=== PATIENT | male | born 1945 | race Caucasian/White ===

== ENCOUNTER 2017-05-03 16:55 | Observation (INO) | payer OTHER, BC ==
[~2017-05-03] VITALS: Ht 182.9 cm; Wt 91.0 kg
[2017-05-03] MEDS ORDERED: MoRPHine SULFATE 4 MG/ML 1 ML CARP\\VIAL IV STA (17:14)
[2017-05-03] MEDS ORDERED: SODIUM CHLORIDE 0.9% 1000ML 1,000 ML IV STA (17:16)
[2017-05-03 17:24] LABS: BASO % 0.1 %; BASO ABS # 0.01 K/uL (0-0.2); COMPLETE YES; EOS % 0.4 %; HEMATOCRIT 48.8 % (42-52); IG% 0.1 %; LYMPH % 4.1 %; LYMPH ABS # 0.37 K/uL (1.2-3.4); MEAN CELL VOLUME 90.5 fL (80-100); MEAN CORPUSCULAR HEMOGLOBIN 29.9 pg (25-34); MEAN PLATELET VOLUME 9.5 fL (7.4-10.4); MONO % 10.4 %; NEUT % 84.9 %; PLATELET COUNT 184 K/uL (130-400); RED BLOOD COUNT 5.39 M/uL (4.7-6.1); WHITE BLOOD COUNT 8.96 K/uL (4.8-10.8)
[2017-05-03 17:29] LABS: PROTHROMBIN TIME (PATIENT) 10.6 SECONDS (9.0-12.0)
[2017-05-03 17:32] LABS: ISTAT HEMOGLOBIN 16.7 g/dl (14.0-18.0); ISTAT IONIZED CALCIUM 1.16 mmol/l (1.12-1.32)
[2017-05-03 17:36] LABS: BUN/CREATININE RATIO 20.7 (10-20); CREATININE 1.1 mg/dl (0.60-1.40); POTASSIUM 3.9 mmol/L (3.5-5.1)
[2017-05-03] MEDS ORDERED: RANI150T3 PO (17:46)
[2017-05-03] MEDS ORDERED: MULT-513 PO (17:46)
[2017-05-03] MEDS ORDERED: ASTN (17:46)
[2017-05-03] MEDS ORDERED: ATOR10TA88 PO (17:46)
[2017-05-03] MEDS ORDERED: PANT40TA PO (17:46)
[2017-05-03] MEDS ORDERED: OPTIRAY 320 IV PRN (18:15)
--- NOTE | 2017-05-03 18:21 | EMERGENCY ROOM VISIT NOTE ---
History Report prepared by Gaudencio: Geronimo Page Under the Supervision of: Dr. Bette Nicholas D.O. First contact with patient: 17:00 Chief Complaint: SHORTNESS OF BREATH Stated Complaint: SOB, PAIN IN CHEST WHEN BREATHING History of Present Illness The patient is a 71 year old male who presents to the Emergency Room with complaints of worsening shortness of breath and pain with inspiration which is better when sitting up and standing. Per the patient's , this morning the patient was having pain in his left shoulder blade and sternal pain which has worsened. The patient's states that the patient has had a similar episode a few years ago, and it turned out to be pericarditis. Additionally, the patient has a history of sarcoidosis in his heart and lung. The patient recently had a CT scan done, and in the right lung there has been a change, so he is going to be getting a biopsy sometime soon. He additionally notes that he has been power washing a lot recently. Pt denies headache, change in vision, fevers, cough, sore throat, runny nose, nausea, vomiting, diarrhea, pain with urination, and melena. He states that he is not on chronic steroids. He denies any history of asthma, COPD, smoking, and heart issues other than sarcoidosis. He states that he has a history of reflux, though this pain is very different. power washing recently Source of History: patient, spouse/significant other Onset: this morning Position: other (global) Quality: other (shortness of breath) Timing: worsening Modifying Factors (Relieving): other (Sitting up and standing) Associated Symptoms: + chest pain Review of Systems See HPI for pertinent positives & negatives. A total of 10 systems reviewed and were otherwise negative. Past Medical & Surgical Medical Problems: (1) Abnormal chest CT (2) Cholelithiasis (3) Dyslipidemia (4) GERD (gastroesophageal reflux disease) (5) History of pericarditis (6) Pericarditis (7) Sarcoidosis Surgical Problems: (1) Status post cardiac catheterization (2) Status post implantation of automatic cardioverter/defibrillator (AICD) (3) Status post total knee replacement Social History Smoking Status: Never Smoker Marital Status: Housing Status: lives with family Current/Historical Medications Scheduled Atorvastatin (Lipitor), 10 MG PO DAILY Azelastine Hcl (Astelin Nasal [place]), 1 SPRAYS NA BID Colchicine (Colcrys), 0.6 MG PO BID Lactobacillus Acidophilus (Lactinex), 2 TAB PO BID Levofloxacin (Levofloxacin), 500 MG PO DAILY@11 Multivitamins/Minerals (Mvi With Minerals), 2 TAB PO DAILY Pantoprazole (Protonix), 40 MG PO DAILY Prednisone (Prednisone), 20 MG PO DAILY Ranitidine Hcl (Zantac), 150 MG PO HS Allergies Coded Allergies: No Known Allergies (Unverified , 05/03/17) Physical Exam Vital Signs Date Time Temp Pulse Resp B/P (MAP) Pulse Ox O2 Delivery O2 Flow Rate FiO2 05/03/17 18:55 93 20 154/94 99 Room Air 05/03/17 17:31 88 05/03/17 17:14 98 Nasal Cannula 2.0 05/03/17 17:14 97 Nasal Cannula 05/03/17 17:13 97 Room Air 05/03/17 16:57 36.7 93 28 148/98 97 Room Air Physical Exam GENERAL: alert, well appearing, well nourished, moderate distress distress, non- toxic, uncomfortable in obvious pain EYE EXAM: normal conjunctiva, PERRL and EOM's grossly intact OROPHARYNX: no exudate, no erythema, lips, buccal mucosa, and tongue normal and mucous membranes are moist NECK: supple, no nuchal rigidity, no adenopathy, non-tender LUNGS: Clear to auscultation. Normal chest wall mechanics HEART: no murmurs, S1 normal and S2 normal CHEST: Pace maker in the left anterior superior chest wall. ABDOMEN: abdomen soft, non-tender, normo-active bowel sounds, no masses, no rebound or guarding. BACK: Back is symmetrical on inspection and there is no deformity, no midline tenderness, no CVA tenderness. SKIN: no rashes and no bruising UPPER EXTREMITIES: upper extremities are grossly normal. LOWER EXTREMITIES: No pitting edema. NEURO EXAM: Normal sensorium, cranial nerves II-XII [grossly] intact, normal speech, no [gross] weakness of arms, no [gross] weakness of legs. [No drift. Finger to nose intact. Gross sensation intact.] Medical Decision & Procedures ER Provider Diagnostic Interpretation: Radiology results have been interpreted by the radiologist and reviewed by me. CHEST ONE VIEW PORTABLE HISTORY: Short of breath. Atypical chest pain. COMPARISON: None. FINDINGS: Low lung volumes. The heart is mildly enlarged. Left-sided pacemaker/defibrillator. No pneumothorax. No pleural effusions. Patchy airspace opacity within the right lung base. Mild central pulmonary vascular congestion without overt edema. IMPRESSION: 1. Right basilar airspace opacity. This may represent atelectasis or pneumonia. 2. Mild central pulmonary vascular congestion without overt edema. Electronically signed by: Froylan Dolan M.D. 05/03/2017 6:40 PM Dictated Date/Time: 05/03/2017 6:39 PM CHEST CTA for PULMONARY ARTERIES CT DOSE: 398.95 mGy.cm HISTORY: Atypical chest pain. Short of breath. TECHNIQUE: Multiaxial CT images of the chest were performed following the intravenous administration of contrast to evaluate the pulmonary arteries. Maximal intensity projection images were also obtained. A dose lowering technique was utilized adhering to the principles of ALARA. COMPARISON STUDY: Chest 05/03/2017. FINDINGS: No significant pleural effusions. Small pericardial effusion. Left-sided pacemaker. Normal caliber thoracic aorta with no evidence for dissection. No definite filling defects within the pulmonary arteries to suggest pulmonary embolus. No suspicious lytic or blastic osseous lesions. The visualized liver and spleen are unremarkable. Multiple calcified mediastinal and hilar lymph nodes. The bilateral hilar lymph nodes are mildly enlarged. Some of the bilateral hilar lymphadenopathy/soft tissue results in narrowing of the central pulmonary arteries. No pneumothorax. Small focal density within the left lung apex. Focal left suprahilar area of consolidation/soft tissue demonstrate a bronchovascular distribution. This measures 1.8 cm. A few additional scattered nodular and groundglass airspace opacity seen within the lungs. A 4 mm subpleural nodule within the right lower lobe on image 52. A 9 mm focal area of consolidation within the superior segment of the left lower lobe in image 116. Patchy airspace consolidation seen within the right middle lobe and base of the right lower lobe. Peripheral cavitary lesion within the right upper lobe measuring 1.4 cm. The bilateral hilar soft tissue/lymphadenopathy also results in narrowing of the central bronchi. Mild bibasilar interstitial thickening. Patchy groundglass airspace opacities within the base of the lingula and left lower lobe. IMPRESSION: 1. No evidence for pulmonary embolus. 2. Multifocal airspace opacities as described above most pronounced at the right lung base. This favors a pneumonia. There is also a 1.4 cm cavitary lesion within the right upper lobe. This may also represent an infectious process. However, recommend follow up to resolution to exclude the possibility of a malignancy. 3. Calcified mediastinal and hilar lymph nodes. The bilateral hilar lymph nodes/soft tissue encases the central pulmonary arteries and bronchi resulting mild narrowing. There is also a 1.8 cm soft tissue focus within the left suprahilar location surrounding the bronchovascular bundle. This could be due to sarcoidosis or possibly a neoplastic process. Pulmonary consultation is recommended for further evaluation. 4. Small pericardial effusion. Electronically signed by: Froylan Dolan M.D. 05/03/2017 7:08 PM Dictated Date/Time: 05/03/2017 6:56 PM Laboratory Results 05/03/17 17:05 Red Blood Count 5.39, Mean Corpuscular Volume 90.5, Mean Corpuscular Hemoglobin 29.9, Mean Corpuscular Hemoglobin Concent 33.0, Mean Platelet Volume 9.5, Neutrophils (%) (Auto) 84.9, Lymphocytes (%) (Auto) 4.1, Monocytes (%) (Auto) 10.4, Eosinophils (%) (Auto) 0.4, Basophils (%) (Auto) 0.1, Neutrophils # (Auto ) 7.60, Lymphocytes # (Auto) 0.37, Monocytes # (Auto) 0.93, Eosinophils # (Auto ) 0.04, Basophils # (Auto) 0.01 Test 05/03/17 17:05 05/03/17 17:20 White Blood Count 8.96 K/uL (4.8-10.8) Red Blood Count 5.39 M/uL (4.7-6.1) Hemoglobin 16.1 g/dL (14.0-18.0) Hematocrit 48.8 % (42-52) Mean Corpuscular Volume 90.5 fL (80-100) Mean Corpuscular Hemoglobin 29.9 pg (25-34) Mean Corpuscular Hemoglobin Concent 33.0 g/dl (32-36) Platelet Count 184 K/uL (130-400) Mean Platelet Volume 9.5 fL (7.4-10.4) Neutrophils (%) (Auto) 84.9 % Lymphocytes (%) (Auto) 4.1 % Monocytes (%) (Auto) 10.4 % Eosinophils (%) (Auto) 0.4 % Basophils (%) (Auto) 0.1 % Neutrophils # (Auto) 7.60 K/uL (1.4-6.5) Lymphocytes # (Auto) 0.37 K/uL (1.2-3.4) Monocytes # (Auto) 0.93 K/uL (0.11-0.59) Eosinophils # (Auto) 0.04 K/uL (0-0.5) Basophils # (Auto) 0.01 K/uL (0-0.2) RDW Standard Deviation 44.8 fL (36.4-46.3) RDW Coefficient of Variation 13.7 % (11.5-14.5) Immature Granulocyte % (Auto) 0.1 % Immature Granulocyte # (Auto) 0.01 K/uL (0.00-0.02) Prothrombin Time 10.6 SECONDS (9.0-12.0) Prothromb Time International Ratio 1.0 (0.9-1.1) D-Dimer 780 ug/L FEU (0-500) Total Bilirubin 0.7 mg/dl (0.2-1) Aspartate Amino Transf (AST/SGOT) 16 U/L (15-37) Alanine Aminotransferase (ALT/SGPT) 21 U/L (12-78) Alkaline Phosphatase 82 U/L (45-117) Pro-B-Type Natriuretic Peptide 103 pg/ml (0-900) Total Protein 8.0 gm/dl (6.4-8.2) Albumin 4.1 gm/dl (3.4-5.0) Globulin 3.9 gm/dl (2.5-4.0) Albumin/Globulin Ratio 1.0 (0.9-2) Bedside Hemoglobin 16.7 g/dl (14.0-18.0) Bedside Hematocrit 49 % (42-52) Bedside Sodium 139 mEq/L (135-144) Bedside Potassium 3.9 mEq/L (3.3-5.0) Bedside Chloride 101 mEq/L (101-112) Bedside Total CO2 27 mEq/l (24-31) Bedside Blood Urea Nitrogen 25 mg/dl (7-18) Bedside Creatinine 1.0 mg/dl (0.6-1.3) Bedside Glucose (other) 141 mg/dl (70-99) Bedside Ionized Calcium (Rupa) 1.16 mmol/l (1.12-1.32) Laboratory results per my review. Medications Administered Medications (Trade) Dose Ordered Sig/Eric Route Start Time Stop Time Status Last Admin Dose Admin Morphine Sulfate (MoRPHine SULFATE INJ) 4 mg NOW STAT IV 05/03/17 17:14 05/03/17 17:16 DC 05/03/17 17:21 4 MG Sodium Chloride 1,000 ml @ 125 mls/hr Q8H STAT IV 05/03/17 17:16 05/03/17 21:33 DC 05/03/17 17:21 125 MLS/HR Ceftriaxone Sodium (Rocephin Inj) 1 gm NOW STAT IV 05/03/17 19:13 05/03/17 19:14 DC 05/03/17 19:56 1 GM Azithromycin (Zithromax Tab) 500 mg NOW ONCE PO 05/03/17 19:15 05/03/17 19:16 DC 05/03/17 19:56 500 MG Acetaminophen (Tylenol Tab) 650 mg NOW STAT PO 05/03/17 19:13 05/03/17 19:14 DC 05/03/17 19:25 650 MG ECG Indication: chest pain, SOB/dyspnea Rate (beats per minute): 91 Rhythm: sinus rhythm Findings: RBBB, no acute ischemic change, other (Normal axis, normal QTc) ED Course 1700: The patient was evaluated in room C9. A complete history and physical exam was performed. 171: Morphine Sulfate 4mg IV 171: Sodium Chloride 1000 ml @ 125 mls/hr IV 172: Bedside US showed no obvious pericardial effusions or tamponade. Grossly normal appearing EF 1855: I reevaluated the patient, and I updated him on the findings. 1912: Tylenol Tab 650mg PO, Rocephin Inj 1gm IV 1914: Azithromycin Tab 500mg PO 1918: I reevaluated him on the treatment plan, and he was agreeable. 1933: I reviewed the patient's case with Cliff Serra. He will evaluate the patient for further management. Medical Decision Differential diagnosis: Etiologies such as cardiac ischemia, aortic dissection, pulmonary embolism, pneumonia, pneumothorax, musculoskeletal, infections, pericarditis, myocarditis , esophageal rupture, gastrointestinal, infections, reactive airway disease, pneumonia, pneumothorax, COPD, CHF, cardiac ischemia, pulmonary embolism, musculoskeletal, gastrointestinal, as well as others were entertained. Patient never overtly hypoxic, although had subjective symptoms shortness of breath improved with oxygen. Patient with significant amount of pain and distress initially, improved with morphine. Patient found to have a bilateral pneumonia. Patient not immunocompromised, is not a chronic steroids, had no recent prodromal symptoms to suggest an upper respiratory infection. No evidence of bacteremia/sepsis and patient afebrile here. Given patient's bilateral pneumonia, history of sarcoidosis, patient admitted for continued monitoring. IV antibiotics ordered down here to cover for community acquired pneumonia. Vital signs otherwise stable. Patient and family aware of all results were agreeable with plan. No other evidence of ACS, PE, vascular pathology. Medication Reconcilliation Current Medication List: was personally reviewed by me Blood Pressure Screening Patient's blood pressure: Elevated blood pressure Blood pressure disposition: Elevated BP felt to be situational Consults Time Called: 1914 Consulting Physician: Cliff Serra Returned Call: 1933 I reviewed the patient's case with Cliff Serra. He will evaluate the patient for further management. Impression Primary Impression: Chest pain Additional Impressions: SOB (shortness of breath) Bilateral pneumonia Sarcoidosis Scribe Attestation The scribe's documentation has been prepared under my direction and personally reviewed by me in its entirety. I confirm that the note above accurately reflects all work, treatment, procedures, and medical decision making performed by me. Departure Information Dispostion Being Evaluated By Hospitalist Prescriptions Lactobacillus Acidophilus (Lactinex) Tab 2 TAB PO BID, #30 TAB Prov: Jani Gramajo M.D. 05/04/17 Colchicine (Colcrys) 0.6 Mg Tab 0.6 MG PO BID for 30 Days, #60 TAB Prov: Jani Gramajo M.D. 05/04/17 Prednisone (Prednisone) 20 Mg Tab 20 MG PO DAILY for 20 Days, #20 TAB 2 tab PO daily for 5 days,1 and a 1/2 tab PO daily for 5 days,1 tab PO daily for 5 days and then 1/2 tab po dailt for 5 days Prov: Jani Gramajo M.D. 05/04/17 Levofloxacin (Levofloxacin) 500 Mg Tab 500 MG PO DAILY@11 for 5 Days, #5 TAB Prov: Jani Gramajo M.D. 05/04/17 Patient Instructions My [facility] Problem Qualifiers Primary Impression: Chest pain Chest pain type: pleurodynia Qualified Codes: R07.81 - Pleurodynia Additional Impressions: Bilateral pneumonia Pneumonia type: due to unspecified organism Lung location: unspecified part of lung Qualified Codes: J18.9 - Pneumonia, unspecified organism
--- NOTE | 2017-05-03 18:41 | DIAGNOSTIC IMAGING REPORT ---
CHEST ONE VIEW PORTABLE HISTORY: Short of breath. Atypical chest pain. COMPARISON: None. FINDINGS: Low lung volumes. The heart is mildly enlarged. Left-sided pacemaker/defibrillator. No pneumothorax. No pleural effusions. Patchy airspace opacity within the right lung base. Mild central pulmonary vascular congestion without overt edema. IMPRESSION: 1. Right basilar airspace opacity. This may represent atelectasis or pneumonia. 2. Mild central pulmonary vascular congestion without overt edema. Electronically signed by: Froylan Dolan M.D. 05/03/2017 6:40 PM Dictated Date/Time: 05/03/2017 6:39 PM
--- NOTE | 2017-05-03 19:10 | DIAGNOSTIC IMAGING REPORT ---
CHEST CTA for PULMONARY ARTERIES CT DOSE: 398.95 mGy.cm HISTORY: Atypical chest pain. Short of breath. TECHNIQUE: Multiaxial CT images of the chest were performed following the intravenous administration of contrast to evaluate the pulmonary arteries. Maximal intensity projection images were also obtained. A dose lowering technique was utilized adhering to the principles of ALARA. COMPARISON STUDY: Chest 05/03/2017. FINDINGS: No significant pleural effusions. Small pericardial effusion. Left-sided pacemaker. Normal caliber thoracic aorta with no evidence for dissection. No definite filling defects within the pulmonary arteries to suggest pulmonary embolus. No suspicious lytic or blastic osseous lesions. The visualized liver and spleen are unremarkable. Multiple calcified mediastinal and hilar lymph nodes. The bilateral hilar lymph nodes are mildly enlarged. Some of the bilateral hilar lymphadenopathy/soft tissue results in narrowing of the central pulmonary arteries. No pneumothorax. Small focal density within the left lung apex. Focal left suprahilar area of consolidation/soft tissue demonstrate a bronchovascular distribution. This measures 1.8 cm. A few additional scattered nodular and groundglass airspace opacity seen within the lungs. A 4 mm subpleural nodule within the right lower lobe on image 52. A 9 mm focal area of consolidation within the superior segment of the left lower lobe in image 116. Patchy airspace consolidation seen within the right middle lobe and base of the right lower lobe. Peripheral cavitary lesion within the right upper lobe measuring 1.4 cm. The bilateral hilar soft tissue/lymphadenopathy also results in narrowing of the central bronchi. Mild bibasilar interstitial thickening. Patchy groundglass airspace opacities within the base of the lingula and left lower lobe. IMPRESSION: 1. No evidence for pulmonary embolus. 2. Multifocal airspace opacities as described above most pronounced at the right lung base. This favors a pneumonia. There is also a 1.4 cm cavitary lesion within the right upper lobe. This may also represent an infectious process. However, recommend follow up to resolution to exclude the possibility of a malignancy. 3. Calcified mediastinal and hilar lymph nodes. The bilateral hilar lymph nodes/soft tissue encases the central pulmonary arteries and bronchi resulting mild narrowing. There is also a 1.8 cm soft tissue focus within the left suprahilar location surrounding the bronchovascular bundle. This could be due to sarcoidosis or possibly a neoplastic process. Pulmonary consultation is recommended for further evaluation. 4. Small pericardial effusion. Electronically signed by: Froylan Dolan M.D. 05/03/2017 7:08 PM Dictated Date/Time: 05/03/2017 6:56 PM
[2017-05-03] MEDS ORDERED: ACETAMINOPHEN 325 MG TAB PO STA (19:13)
[2017-05-03] MEDS ORDERED: CEFTRIAXONE SOD INJ 1 GM ADDVIAL IV STA (19:13)
[2017-05-03] MEDS ORDERED: AZITHROMYCIN 250 MG TAB PO ONE (19:15)
--- NOTE | 2017-05-03 19:38 | History and Physical ---
History & Physical Date & Time of Service: May 03, 2017 at 19:38 . Chief Complaint: chest pain, shortness of breath . Primary Care Physician: No Doctor, Assigned History of Present Illness Source: patient, hospital records 71-year-old male from [place], [place] visiting friends in surgical specialty center at [facility]. History of sarcoidosis, pericarditis, and other problems noted below. He had a cardiac catheterization performed a few years ago that reportedly demonstrated normal coronaries. However, the patient indicates that "his heart stopped" during the catheterization. He does not know the circumstances of the arrhythmia, but a pacemaker/AICD was implanted during that hospital stay. His sarcoidosis has been quiescent has not required steroid therapy for many years. 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 A right upper lobe lesion has been followed by serial CT scans and has gradually increased in size. Bronchoscopy scheduled for 05/06. This morning he noted left scapular pain when he awakened. Pain seems to improve after taking a shower and doing some stretching. Later this morning he developed anterior chest pain described as sharp and worse with inspiration. The pain did not radiate. It was associated with dyspnea. No diaphoresis, nausea, vomiting. No fever or cough. Tried taking approximately without benefit. Came to the ED for evaluation. Received IV morphine with improvement of the chest pain. . Past Medical/Surgical History Chronic and Resolved Medical Problems: (1) Abnormal chest CT Status: Chronic (2) Cholelithiasis Status: Chronic (3) Dyslipidemia Status: Chronic (4) GERD (gastroesophageal reflux disease) Status: Chronic (5) History of pericarditis Status: Chronic (6) Sarcoidosis Status: Chronic Surgical Problems: (1) Status post cardiac catheterization Status: Chronic (2) Status post implantation of automatic cardioverter/defibrillator (AICD) Status: Chronic (3) Status post total knee replacement Status: Chronic . Family History FATHER Parkinson's disease Kidney disease MOTHER Thyroid disease Social History Smoking Status: Never Smoker Alcohol Use: socially Marital Status: Allergies Coded Allergies: No Known Allergies (Unverified , 05/03/17) Home Medications Scheduled Atorvastatin (Lipitor), 10 MG PO DAILY Azelastine Hcl (Astelin Nasal [place]), 1 SPRAYS NA BID Multivitamins/Minerals (Mvi With Minerals), 2 TAB PO DAILY Pantoprazole (Protonix), 40 MG PO DAILY Ranitidine Hcl (Zantac), 150 MG PO HS Review of Systems Constitutional: No fever, No chills Eyes: No worsening of vision, No diplopia ENT: No nasal symptoms, No sore throat Respiratory: + problem reported (as per HPI) Cardiovascular: + problem reported (as per HPI) Abdomen: No pain, No nausea, No vomiting, No diarrhea, No GI bleeding Musculoskeletal: + joint pain, No muscle pain Genitourinary - Male: No hematuria, No dysuria Neurologic: + problem reported (no headaches) Endocrine: No excessive thirst, No excessive urination Hematologic / Lymphatic: No abnormal bleeding/bruising, No swollen lymph nodes Integumentary: No rash, No new/changing skin lesions Physical Exam Vital Signs Date Time Temp Pulse Resp B/P (MAP) Pulse Ox O2 Delivery O2 Flow Rate FiO2 05/03/17 18:55 93 20 154/94 99 Room Air 05/03/17 17:31 88 05/03/17 17:14 98 Nasal Cannula 2.0 05/03/17 17:14 97 Nasal Cannula 05/03/17 17:13 97 Room Air 05/03/17 16:57 36.7 93 28 148/98 97 Room Air General Appearance: WD/WN, no apparent distress Head: normocephalic, atraumatic Eyes: normal inspection, PERRL, EOMI, sclerae normal, + pertinent finding ( conjunctivae pink) ENT: normal ENT inspection, hearing grossly normal, pharynx normal Neck: supple, thyroid normal, no JVD, trachea midline Respiratory/Chest: no respiratory distress, no accessory muscle use, + pertinent finding (bibasilar rales, more prominent on right) Cardiovascular: regular rate, rhythm, no edema, no gallop, no JVD, no murmur, normal peripheral pulses Abdomen/GI: normal bowel sounds, non tender, soft, no organomegaly, no pulsatile mass Extremities/Musculoskelatal: normal inspection, no calf tenderness, normal capillary refill, no pedal edema 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 (pupils equal round reactive, extraocular movements intact, no dysarthria, no facial palsy), no motor/sensory deficits (motor strength upper and lower extremities intact), alert, normal mood /affect, normal reflexes, oriented x 3 Skin: normal color, warm/dry, no rash Lymphatic: no adenopathy (cervical/axillary) Diagnostics Laboratory Results Results Past 24 Hours Test 05/03/17 17:05 05/03/17 17:20 Range/Units White Blood Count 8.96 4.8-10.8 K/uL Red Blood Count 5.39 4.7-6.1 M/uL Hemoglobin 16.1 14.0-18.0 g/dL Hematocrit 48.8 42-52 % Mean Corpuscular Volume 90.5 80-100 fL Mean Corpuscular Hemoglobin 29.9 25-34 pg Mean Corpuscular Hemoglobin Concent 33.0 32-36 g/dl Platelet Count 184 130-400 K/uL Mean Platelet Volume 9.5 7.4-10.4 fL Neutrophils (%) (Auto) 84.9 % Lymphocytes (%) (Auto) 4.1 % Monocytes (%) (Auto) 10.4 % Eosinophils (%) (Auto) 0.4 % Basophils (%) (Auto) 0.1 % Neutrophils # (Auto) 7.60 1.4-6.5 K/uL Lymphocytes # (Auto) 0.37 1.2-3.4 K/uL Monocytes # (Auto) 0.93 0.11-0.59 K/uL Eosinophils # (Auto) 0.04 0-0.5 K/uL Basophils # (Auto) 0.01 0-0.2 K/uL RDW Standard Deviation 44.8 36.4-46.3 fL RDW Coefficient of Variation 13.7 11.5-14.5 % Immature Granulocyte % (Auto) 0.1 % Immature Granulocyte # (Auto) 0.01 0.00-0.02 K/uL Prothrombin Time 10.6 9.0-12.0 SECONDS Prothromb Time International Ratio 1.0 0.9-1.1 D-Dimer 780 0-500 ug/L FEU Sodium Level 139 136-145 mmol/L Potassium Level 3.9 3.5-5.1 mmol/L Chloride Level 104 98-107 mmol/L Carbon Dioxide Level 26 21-32 mmol/L Anion Gap 9.0 16.0 16-25 mmol/L Blood Urea Nitrogen 23 7-18 mg/dl Creatinine 1.10 0.60-1.40 mg/dl Est Creatinine Clear Calc Drug Dose 69.6 ml/min Estimated GFR () 79.0 Estimated GFR (Non- 68.1 BUN/Creatinine Ratio 20.7 10-20 Random Glucose 143 70-99 mg/dl Calcium Level 9.0 8.5-10.1 mg/dl Total Bilirubin 0.7 0.2-1 mg/dl Aspartate Amino Transf (AST/SGOT) 16 15-37 U/L Alanine Aminotransferase (ALT/SGPT) 21 12-78 U/L Alkaline Phosphatase 82 45-117 U/L Pro-B-Type Natriuretic Peptide 103 0-900 pg/ml Total Protein 8.0 6.4-8.2 gm/dl Albumin 4.1 3.4-5.0 gm/dl Globulin 3.9 2.5-4.0 gm/dl Albumin/Globulin Ratio 1.0 0.9-2 Bedside Hemoglobin 16.7 14.0-18.0 g/dl Bedside Hematocrit 49 42-52 % Bedside Sodium 139 135-144 mEq/L Bedside Potassium 3.9 3.3-5.0 mEq/L Bedside Chloride 101 101-112 mEq/L Bedside Total CO2 27 24-31 mEq/l Bedside Blood Urea Nitrogen 25 7-18 mg/dl Bedside Creatinine 1.0 0.6-1.3 mg/dl Bedside Glucose (other) 141 70-99 mg/dl Bedside Ionized Calcium (Rupa) 1.16 1.12-1.32 mmol/l Microbiology Results 05/03/17 Blood Culture, Ordered Pending 05/03/17 Blood Culture, Ordered Pending Diagnostic Radiology CHEST ONE VIEW PORTABLE FINDINGS: Low lung volumes. The heart is mildly enlarged. Left-sided pacemaker/defibrillator. No pneumothorax. No pleural effusions. Patchy airspace opacity within the right lung base. Mild central pulmonary vascular congestion without overt edema. IMPRESSION: 1. Right basilar airspace opacity. This may represent atelectasis or pneumonia. 2. Mild central pulmonary vascular congestion without overt edema. Electronically signed by: Froylan Dolan M.D. 05/03/2017 6:40 PM Dictated Date/Time: 05/03/2017 6:39 PM CHEST CTA for PULMONARY ARTERIES FINDINGS: No significant pleural effusions. Small pericardial effusion. Left-sided pacemaker. Normal caliber thoracic aorta with no evidence for dissection. No definite filling defects within the pulmonary arteries to suggest pulmonary embolus. No suspicious lytic or blastic osseous lesions. The visualized liver and spleen are unremarkable. Multiple calcified mediastinal and hilar lymph nodes. The bilateral hilar lymph nodes are mildly enlarged. Some of the bilateral hilar lymphadenopathy/soft tissue results in narrowing of the central pulmonary arteries. No pneumothorax. Small focal density within the left lung apex. Focal left suprahilar area of consolidation/soft tissue demonstrate a bronchovascular distribution. This measures 1.8 cm. A few additional scattered nodular and groundglass airspace opacity seen within the lungs. A 4 mm subpleural nodule within the right lower lobe on image 52. A 9 mm focal area of consolidation within the superior segment of the left lower lobe in image 116. Patchy airspace consolidation seen within the right middle lobe and base of the right lower lobe. Peripheral cavitary lesion within the right upper lobe measuring 1.4 cm. The bilateral hilar soft tissue/lymphadenopathy also results in narrowing of the central bronchi. Mild bibasilar interstitial thickening. Patchy groundglass airspace opacities within the base of the lingula and left lower lobe. IMPRESSION: 1. No evidence for pulmonary embolus. 2. Multifocal airspace opacities as described above most pronounced at the right lung base. This favors a pneumonia. There is also a 1.4 cm cavitary lesion within the right upper lobe. This may also represent an infectious process. However, recommend follow up to resolution to exclude the possibility of a malignancy. 3. Calcified mediastinal and hilar lymph nodes. The bilateral hilar lymph nodes/soft tissue encases the central pulmonary arteries and bronchi resulting mild narrowing. There is also a 1.8 cm soft tissue focus within the left suprahilar location surrounding the bronchovascular bundle. This could be due to sarcoidosis or possibly a neoplastic process. Pulmonary consultation is recommended for further evaluation. 4. Small pericardial effusion. Electronically signed by: Froylan Dolan M.D. 05/03/2017 7:08 PM Dictated Date/Time: 05/03/2017 6:56 PM . EKG EKG performed at 17:04 reviewed and demonstrated normal sinus rhythm at 90/ minute, right bundle branch block, repolarization abnormalities. . Impression Assessment and Plan CHEST PAIN Patient presented to ED with anterior pleuritic chest pain. History of pericarditis, possibly secondary to sarcoidosis. Pulmonary embolism ruled out by CTA chest. Parenchymal radiographic abnormalities noted on imaging may be due to acute process as discussed below, but suspect that they represent chronic findings. Symptoms not suggestive of myocardial ischemia / infarction. Patient indicates that cardiac cath a few years ago showed normal coronaries. CT chest suggests small pericardial effusion. Suspect recurrent pericarditis. Check ESR and c-reactive protein. Check serial cardiac markers. Check echo. Start steroids- methylprednisolone IV x 1, then prednisone 40 mg daily. Consult Cardiology. PULMONARY INFILTRATES / SARCOIDOSIS Chest x-ray demonstrated right basilar infiltrate. CT chest demonstrated bilateral densities most prominent at right base, 1.4 cm cavitary lesion RUL, calcified mediastinal and hilar lymph nodes. Patient known to have sarcoidosis and has been followed by Pulmonary Medicine with serial CT scans. [facility] [place] [place] obtained. Bilateral scarring / interstitial thickening as well as a slowly enlarging RUL cavitary nodule measuring 15 mm described. Arrangements made for bronchoscopy 05/06/17. We don't have images available for direct comparison. Suspect that radiographic findings are chronic. Nevertheless, pneumonia is possible. Blood cultures were obtained in ED and patient received IV ceftriaxone and azithromycin. Check procalcitonin. Will change antibiotic coverage to levofloxacin. QTc = 460 msec (with RBBB). Follow. Patient will need copies of his imaging studies at time of discharge for review by his wood and hardware outfitter in [place]. S/P DEFIBRILLATOR / ICD Unclear exact indication- ? heart block or ventricular arrhythmia. No discharges of ICD. ELEVATED D-DIMER CTA chest negative for pulmonary embolism. Check venous duplex lower extremities. GERD Continue PPI. VTE PROPHYLAXIS No anticoagulants because of suspected pericarditis. SCD's. Ambulate. RESUSCITATION STATUS Discussed with patient. He has a living will. He would like resuscitation attempted in the event of a cardiopulmonary arrest if there is a reasonable chance of a meaningful recovery, but does not want prolonged extraordinary measures if prognosis is poor. Therefore, code status = "Level 1" (full resuscitation). DISPOSITION Admit to Telemetry Unit. Expected discharge to home. Medical and pulmonary follow-up with providers in [place], [place]. . VTE Prophylaxis VTE Risk Assessment Done? Y/N: Yes Risk Level: Moderate Given or contraindicated: SCD's
[2017-05-03] MEDS ORDERED: ACETAMINOPHEN 325 MG TAB PO PRN (19:45)
[2017-05-03] MEDS ORDERED: IV FLUIDS COMPLETED PRN (20:15)
[2017-05-03 20:45] VITALS: BP 112/81; PULSE 81; TEMP 36.5; O2SAT 98; Ht 182.9 cm; Wt 91.0 kg
[2017-05-03] MEDS ORDERED: RANITIDINE HCL 150 MG TAB PO ONE (21:26)
[2017-05-03] MEDS ORDERED: MoRPHine SULFATE 4 MG/ML 1 ML CARP\\VIAL IV PRN (21:30)
[2017-05-03] MEDS ORDERED: IBUPROFEN 600 MG TAB PO PRN (21:30)
[2017-05-03] MEDS ORDERED: METHYLPREDNISOLONE IV 40 MG in SYRINGE 0 ML IV ONE (22:00)
[2017-05-03] MEDS ORDERED: INFLUENZA ADMINISTRATION CHARGE ONE (23:15)
[2017-05-03] MEDS ORDERED: INFLUENZA VACCINE HIGH DOSE 65+ 0.5 ML SYR IM. ONE (23:15)
[2017-05-03 23:24] LABS: C-REACTIVE PROTEIN 3.37 mg/dl (0-0.29)
[2017-05-03 23:38] VITALS: BP 127/76; PULSE 73; TEMP 36.7; O2SAT 96
[2017-05-04 03:57] VITALS: BP 117/66; PULSE 69; TEMP 36; O2SAT 96
--- NOTE | 2017-05-04 06:18 | DIAGNOSTIC IMAGING REPORT ---
VENOUS DOPPLER LW EXT BILAT HISTORY: Pain. Edema. elevated D-dimer COMPARISON STUDY: None. FINDINGS: There is normal compressibility, flow, and augmentation within the bilateral lower extremity deep venous systems. IMPRESSION: No DVT within the right or left lower extremity. The above report was generated using voice recognition software. It may contain grammatical, syntax or spelling errors. Electronically signed by: Eben Rasheed M.D. 05/04/2017 6:17 AM Dictated Date/Time: 05/04/2017 6:16 AM
[2017-05-04 06:52] LABS: BLOOD UREA NITROGEN 19 mg/dl (7-18); BUN/CREATININE RATIO 19.3 (10-20); CALCIUM 8.9 mg/dl (8.5-10.1); CARBON DIOXIDE 25 mmol/L (21-32); CHLORIDE 106 mmol/L (98-107); CHOLESTEROL 144 mg/dl (0-200); CREATININE 0.98 mg/dl (0.60-1.40); GLUCOSE 167 mg/dl (70-99); POTASSIUM 4.4 mmol/L (3.5-5.1); SODIUM 140 mmol/L (136-145)
[2017-05-04 06:57] LABS: CHOLESTEROL/HDL RATIO 1.8; HDL CHOLESTEROL 81 mg/dl; LDL CHOLESTEROL CALCULATED 56 mg/dl; TRIGLYCERIDES 34 mg/dl (0-150); VERY LOW DENSITY LIPOPROT CALC 7 mg/dl
[2017-05-04 07:34] VITALS: BP 140/84; PULSE 79; TEMP 36.5; O2SAT 95
[2017-05-04 08:00] VITALS: O2SAT 95
[2017-05-04] MEDS ORDERED: PERFLUTREN LIPID MICROSPHERE (DEFINITY) IV ONE (08:52)
[2017-05-04] MEDS ORDERED: CEROVITE ADV FORMULA TAB PO SCH (09:00)
[2017-05-04] MEDS ORDERED: ATORVASTATIN 10 MG TAB PO SCH (09:00)
[2017-05-04] MEDS ORDERED: PANTOprazole SOD 40 MG TAB PO SCH (09:00)
[2017-05-04] MEDS ORDERED: LEVOFLOXACIN 500 MG TAB PO SCH (11:00)
[2017-05-04] MEDS ORDERED: COLCHICINE 0.6 MG TAB PO ONE (11:00)
[2017-05-04 11:05] VITALS: BP 137/72; PULSE 85; TEMP 36.5; O2SAT 91
--- NOTE | 2017-05-04 11:34 | CARDIOLOGY CONSULTATION ---
DATE OF CONSULTATION: 05/04/2017 REFERRING PHYSICIAN: Dr. Shilo Cantor. REASON FOR CONSULTATION: Chest discomfort, possible pericarditis and sarcoidosis. HISTORY OF PRESENT ILLNESS: Mr. Quintero is a 71-year-old gentleman who carries a history of cardiac sarcoidosis, first diagnosed approximately 8 years ago. The patient has a defibrillator implanted due to MRI proven cardiac sarcoid approximately 2.5-3 years ago. He also carries a history of previous pericarditis more than 5 years ago. The patient is visiting friends in the [facility]. He developed chest discomfort yesterday, described as sharp. The discomfort became progressively worse with inspiration over approximately 12-18 hours. The patient was taking shallow breath to avoid discomfort. He came to the emergency department for further evaluation. He was treated with intravenous Solu-Medrol. His symptoms have resolved and he is feeling back to baseline. A CT was performed of his chest. There was no evidence of pulmonary embolus; however, a small pericardial effusion was reported. There are some airspace opacities, possibly pneumonia noted as well. There were no old studies for comparison. Currently, the patient is resting comfortably. He denies chest pain or shortness of breath. No orthopnea, PND, lower extremity edema, claudication, palpitation, lightheadedness, dizziness, syncope or near syncope. Denies any exertional chest discomfort recently. His functional capacity has been stable. No ICD shocks. He offers no other complaints at this time. REVIEW OF SYSTEMS: The pertinent positives noted above. A comprehensive 10-system review is otherwise negative. PAST MEDICAL HISTORY: 1. Sarcoidosis with pulmonary and confirmed cardiac involvement status post ICD. 2. History of pericarditis. 3. Cholelithiasis. 4. Dyslipidemia. 5. GERD. PAST SURGICAL HISTORY: 1. Cardiac catheterization with reportedly normal coronary arteries. 2. ICD implantation. 3. Knee replacement. 4. Bronchoscopy. FAMILY HISTORY: Parkinson's and kidney disease. Denies family history of premature CAD or sudden cardiac . SOCIAL HISTORY: He is a lifelong nonsmoker. He is marries and lives with his . ALLERGIES: No known drug allergies. HOME MEDICATIONS: 1. Lipitor 10 mg daily. 2. Astelin nasal spray twice daily. 3. Multivitamin daily. 4. Protonix 40 mg daily. 5. Ranitidine 150 mg at bedtime. PHYSICAL EXAMINATION: VITAL SIGNS: Temperature 36.7 degrees centigrade, pulse 84 beats per minute, blood pressure 140/84 and SaO2 is 95% on 2 liter nasal cannula. GENERAL: NAD, awake, alert, and oriented x3. Healthy appearing, pleasant and cooperative. HEENT: His mucous membranes are moist. No scleral icterus. Conjunctivae are pink. NECK: Supple. There is no JVD, no HJR, and no carotid bruits. HEART: Regular with a normal S1 and S2. There is a 1-2/6 midsystolic murmur heard beast at the apex. LUNGS: Demonstrate clear breath sounds without rales, rhonchi, or wheezes. ABDOMEN: Soft and nontender. No rebound or guarding. Normal bowel sounds. EXTREMITIES: Warm and dry without clubbing, cyanosis, or edema. NEUROLOGIC: Demonstrates no focal deficits. FINAL IMPRESSION: 1. Acute pericarditis, possibly related to underlying sarcoidosis. 2. Possible exacerbation of pulmonary sarcoid with questionable pneumonia per CT. 3. History of ICD implantation due to sarcoidosis. 4. Questionable history of heart block. 5. History of normal coronary arteries per catheterization approximately 2.5-3 years ago. PLAN AND RECOMMENDATIONS: I had a long discussion with the patient regarding his pericarditis and sarcoidosis. Corticosteroids have been initiated by internal medicine. I am in agreement with this plan of care with a 3-4 week gradual taper. I am going to add colchicine 0.6 mg twice daily to help prevent recurrent episodes. Resting 2D transthoracic echo will be reviewed when available. Antibiotics will be managed by internal medicine. The patient is currently scheduled for needle biopsy of his sarcoid later this week in [place]. Further recommendations pending review of echo. The patient would like to be discharged if possible for close followup with his physicians in [place]. Thank you for allowing me to take part in the care of this patient. ANURAG
--- NOTE | 2017-05-04 12:35 | ECHOCARDIOGRAM REPORT ---
*NOTICE TO RECEIVING CONSTITUTION PARTY AGENCY This information is strictly Confidential and protected under [place] law. [place] law prohibits you from making any further disclosure of this information unless further disclosure is expressly permitted by the written consent of the person to whom it pertains or is authorized by law. A general authorization for the release of medical or other information is not sufficient for this purpose. Hospital accepts no responsibility if the information is made available to any other person, INCLUDING THE PATIENT. Interpretation Summary * Name: OCTAVIO MADERA Study Date: 05/04/2017 08:21 AM BP: 140/84 mmHg * Patient Location: C.2E\S\E202\S\1 HR: 79 * : 1945 (M/d/yyyy) Gender: Male Height: 72 in * Age: 71 yrs Ethnicity: CA Weight: 200 lb * Ordering Physician: Shilo Cantor * Referring Physician: Self, Referred * Performed By: Linn Olivier RDCS * * Reason For Study: Chest pain * BSA: 2.1 m2 * The study was technically adequate. * -- Conclusions -- * Trivial circumferential pericardial effusion. * There are no echocardiographic indications of cardiac tamponade. * Ejection Fraction = 65-70%. * Aortic valve sclerosis mild, without significant aortic valvular stenosis. Procedure Details * A complete two-dimensional transthoracic echocardiogram was performed (2D, M-mode, Doppler and color flow Doppler). * A contrast injection of Definity was performed to improve assessment of LV function. * Contrast was injected into an intravenous site in the left arm. * One vial of Definity ultrasound contrast was diluted in normal saline to a total volume of 10 ml. A total of '2' ml of solution was administered during imaging. * Lot # [id number] of Definity utilized for procedure. * Expiration date MAY 28. * The attending nurse who injected the contrast agent was Matilde Castellon RN. Left Ventricle * The left ventricle is normal in size. * There is no thrombus. * There is normal left ventricular wall thickness. * Ejection Fraction = 65-70%. * Left ventricular systolic function is normal. * The left ventricular wall motion is normal. Right Ventricle * The right ventricle is normal size. * There is a pacemaker lead in the right ventricle. * The right ventricular systolic function is normal as assessed by tricuspid annular plane systolic excursion (TAPSE) (normal >1.5 cm). Atria * The left atrial size is normal. * Right atrial size is normal. * There is no evidence of atrial septal defect, but resolution does not allow assessment for a patent foramen ovale. Mitral Valve * There is mild mitral annular calcification. * There is no mitral valve stenosis. * Significant mitral regurgitation is absent. Tricuspid Valve * The tricuspid valve is normal. * There is no tricuspid stenosis. * Significant tricuspid regurgitation is absent. Aortic Valve * The aortic valve is trileaflet. * There is moderate focl calcification of the rght coronary cusp. * Aortic valve sclerosis mild, without significant aortic valvular stenosis. * Aortic stenosis is absent. * There is no significant aortic regurgitation. Pulmonic Valve * The pulmonary valve is not well seen, but the Doppler examination is normal without significant regurgitation or stenosis. Great Vessels * The aortic root and proximal ascending aorta are normal sized. Pericardium/Pleural * Trivial circumferential pericardial effusion. * There are no echocardiographic indications of cardiac tamponade. Great Vessels * Normal inferior vena cava diameter and respiratory variation suggests normal central venous pressure. Left Ventricular Diastolic Function * Grade I diastolic dysfunction, (abnormal relaxation pattern). MMode 2D Measurements and Calculations IVSd 0.95 cm LVIDd 4.8 cm LVIDs 3.0 cm LVPWd 1.2 cm IVS/LVPW 0.77 FS 38.0 % EDV(Teich) 109.2 ml ESV(Teich) 34.9 ml EF(Teich) 68.0 % EDV(cubed) 112.8 ml ESV(cubed) 26.9 ml EF(cubed) 76.1 % LV mass(C)d 193.6 grams LV mass(C)dI 90.9 grams/m\S\2 SV(Teich) 74.2 ml SI(Teich) 34.9 ml/m\S\2 SV(cubed) 85.8 ml SI(cubed) 40.3 ml/m\S\2 Ao root diam 3.2 cm Ao root area 8.3 cm\S\2 ACS 2.1 cm LA dimension 2.8 cm asc Aorta Diam 2.6 cm LA/Ao 0.85 LVOT diam 2.0 cm LVOT area 3.2 cm\S\2 LVAd ap4 26.2 cm\S\2 LVLd ap4 7.9 cm EDV(MOD-sp4) 73.7 ml EDV(sp4-el) 73.8 ml LVAs ap4 14.6 cm\S\2 LVLs ap4 6.9 cm ESV(MOD-sp4) 26.4 ml ESV(sp4-el) 26.4 ml EF(MOD-sp4) 64.2 % EF(sp4-el) 64.2 % LVAd ap2 21.4 cm\S\2 LVLd ap2 6.9 cm EDV(MOD-sp2) 56.5 ml EDV(sp2-el) 56.4 ml LVAs ap2 10.7 cm\S\2 LVLs ap2 5.4 cm ESV(MOD-sp2) 19.8 ml ESV(sp2-el) 18.3 ml EF(MOD-sp2) 65.0 % EF(sp2-el) 67.6 % LVLd %diff -14.53 % EDV(MOD-bp) 65.4 ml LVLs %diff -28.20 % ESV(MOD-bp) 25.7 ml EF(MOD-bp) 60.6 % SV(MOD-sp4) 47.3 ml SI(MOD-sp4) 22.2 ml/m\S\2 SV(MOD-sp2) 36.7 ml SI(MOD-sp2) 17.2 ml/m\S\2 SV(MOD-bp) 39.6 ml SI(MOD-bp) 18.6 ml/m\S\2 SV(sp4-el) 47.4 ml SI(sp4-el) 22.3 ml/m\S\2 SV(sp2-el) 38.1 ml SI(sp2-el) 17.9 ml/m\S\2 Doppler Measurements and Calculations MV E max obinna 90.7 cm/sec MV A max obinna 93.1 cm/sec MV E/A 0.97 MV dec time 0.21 sec Ao V2 max 155.3 cm/sec Ao max PG 9.7 mmHg Ao max PG (full) 4.2 mmHg MOISES(V,A) 2.4 cm\S\2 MOISES(V,D) 2.4 cm\S\2 LV V1 max PG 5.4 mmHg LV V1 max 116.4 cm/sec PA V2 max 114.0 cm/sec PA max PG 5.2 mmHg PA acc slope 573.4 cm/sec\S\2 PA acc time 0.13 sec TR max obinna 214.2 cm/sec PA pr(Accel) 20.4 mmHg
--- NOTE | 2017-05-04 12:48 | Progress Note ---
Internal Med Progress Note Date of Service: May 04, 2017. Provider Documentation: SUBJECTIVE: The patient was seen and examined Admitted with Chest pain suggestive of Pericarditis H/O Cardiac Sarcoidosis with pericarditis Denies any symptoms today Wants to be discharged OBJECTIVE: Vital Signs-as noted below Exam: General-NO distress Eyes-normal ENT-normal Neck-supple Lungs-Decreased breath sound bilaterally Occasional crackles at the bases Heart-Regular.2/6 ESM precordial area Abdomen-Benign Extremities-No edema Neuro-AAOx3 Lab data as noted below. CTA::IMPRESSION: 1. No evidence for pulmonary embolus. 2. Multifocal airspace opacities as described above most pronounced at the right lung base. This favors a pneumonia. There is also a 1.4 cm cavitary lesion within the right upper lobe. This may also represent an infectious process. However, recommend follow up to resolution to exclude the possibility of a malignancy. 3. Calcified mediastinal and hilar lymph nodes. The bilateral hilar lymph nodes/soft tissue encases the central pulmonary arteries and bronchi resulting mild narrowing. There is also a 1.8 cm soft tissue focus within the left suprahilar location surrounding the bronchovascular bundle. This could be due to sarcoidosis or possibly a neoplastic process. Pulmonary consultation is recommended for further evaluation. 4. Small pericardial effusion. ASSESSMENT & PLAN: POSSIBLE PERICARDITIS Presented with CHEST PAIN History of pericarditis, possibly secondary to sarcoidosis. Pulmonary embolism ruled out by CTA chest. Patient indicates that cardiac cath a few years ago showed normal coronaries. CT chest suggests small pericardial effusion. C reactive Protein elevated at 3.37 ESR -normal Check serial cardiac markers-negative for any ACS. Check echo:: Trivial circumferential pericardial effusion. * There are no echocardiographic indications of cardiac tamponade. * Ejection Fraction = 65-70%. * Aortic valve sclerosis mild, without significant aortic valvular stenosis. Received Methylprednisolone IV x 1, then prednisone 40 mg daily. Appreciate Cardiology input -Colchicine added ,slow taper of Steroid Sarcoidosis with pulmonary Infiltrate Chest x-ray demonstrated right basilar infiltrate. CT chest demonstrated bilateral densities most prominent at right base, 1.4 cm cavitary lesion RUL, calcified mediastinal and hilar lymph nodes. Patient known to have sarcoidosis and has been followed by Pulmonary Medicine with serial CT scans. Copy of CT report performed 04/17/17[facility] in [place], [place] obtained. Bilateral scarring / interstitial thickening as well as a slowly enlarging RUL cavitary nodule measuring 15 mm described. Arrangements made for bronchoscopy 05/06/17. Suspect that radiographic findings are chronic. Nevertheless, pneumonia is possible. Blood cultures were obtained in ED and patient received IV ceftriaxone and azithromycin.. Will change antibiotic coverage to levofloxacin. QTc = 460 msec (with RBBB). Follow. Patient will need copies of his imaging studies at time of discharge for review by his medical officer in [place]. S/P DEFIBRILLATOR / ICD Proven Cardiac Sarcoidosis and ICD was placed about 2.5 -3 years ago No discharges of ICD. ELEVATED D-DIMER CTA chest negative for pulmonary embolism. Check venous duplex lower extremities-no DVT. GERD Continue PPI. VTE PROPHYLAXIS No anticoagulants because of suspected pericarditis. SCD's. Ambulate. RESUSCITATION STATUS Full Code DISPOSITION Expected discharge to home. Medical and pulmonary follow-up with providers in [place], [place]. Likely discharge today . Vital Signs: Date Time Temp Pulse Resp B/P (MAP) Pulse Ox O2 Delivery O2 Flow Rate FiO2 05/04/17 12:00 Room Air 05/04/17 11:05 36.5 85 18 137/72 (93) 91 Room Air 05/04/17 08:00 95 Room Air 05/04/17 07:34 36.5 79 18 140/84 (102) 95 2.0 05/04/17 04:00 Nasal Cannula 2.0 05/04/17 03:57 36.0 69 19 117/66 (83) 96 Nasal Cannula 2.0 05/03/17 23:59 Nasal Cannula 2.0 05/03/17 23:38 36.7 73 19 127/76 (93) 96 Nasal Cannula 2.0 05/03/17 20:45 36.5 81 18 112/81 98 Nasal Cannula 2.0 05/03/17 19:57 87 20 144/77 98 Nasal Cannula 2.0 05/03/17 18:55 93 20 154/94 99 Room Air 05/03/17 17:31 88 05/03/17 17:14 98 Nasal Cannula 2.0 05/03/17 17:14 97 Nasal Cannula 05/03/17 17:13 97 Room Air 05/03/17 16:57 36.7 93 28 148/98 97 Room Air Lab Results: Results Past 24 Hours Test 05/03/17 17:05 05/03/17 17:20 05/03/17 22:50 05/04/17 05:23 Range/Units White Blood Count 8.96 4.8-10.8 K/uL Red Blood Count 5.39 4.7-6.1 M/uL Hemoglobin 16.1 14.0-18.0 g/dL Hematocrit 48.8 42-52 % Mean Corpuscular Volume 90.5 80-100 fL Mean Corpuscular Hemoglobin 29.9 25-34 pg Mean Corpuscular Hemoglobin Concent 33.0 32-36 g/dl Platelet Count 184 130-400 K/uL Mean Platelet Volume 9.5 7.4-10.4 fL Neutrophils (%) (Auto) 84.9 % Lymphocytes (%) (Auto) 4.1 % Monocytes (%) (Auto) 10.4 % Eosinophils (%) (Auto) 0.4 % Basophils (%) (Auto) 0.1 % Neutrophils # (Auto) 7.60 1.4-6.5 K/uL Lymphocytes # (Auto) 0.37 1.2-3.4 K/uL Monocytes # (Auto) 0.93 0.11-0.59 K/uL Eosinophils # (Auto) 0.04 0-0.5 K/uL Basophils # (Auto) 0.01 0-0.2 K/uL RDW Standard Deviation 44.8 36.4-46.3 fL RDW Coefficient of Variation 13.7 11.5-14.5 % Immature Granulocyte % (Auto) 0.1 % Immature Granulocyte # (Auto) 0.01 0.00-0.02 K/uL Prothrombin Time 10.6 9.0-12.0 SECONDS Prothromb Time International Ratio 1.0 0.9-1.1 D-Dimer 780 0-500 ug/L FEU Sodium Level 139 140 136-145 mmol/L Potassium Level 3.9 4.4 3.5-5.1 mmol/L Chloride Level 104 106 98-107 mmol/L Carbon Dioxide Level 26 25 21-32 mmol/L Anion Gap 9.0 16.0 9.0 3-11 mmol/L Blood Urea Nitrogen 23 19 7-18 mg/dl Creatinine 1.10 0.98 0.60-1.40 mg/dl Est Creatinine Clear Calc Drug Dose 69.6 78.1 ml/min Estimated GFR () 79.0 90.8 Estimated GFR (Non- 68.1 78.4 BUN/Creatinine Ratio 20.7 19.3 10-20 Random Glucose 143 167 70-99 mg/dl Calcium Level 9.0 8.9 8.5-10.1 mg/dl Total Bilirubin 0.7 0.2-1 mg/dl Aspartate Amino Transf (AST/SGOT) 16 15-37 U/L Alanine Aminotransferase (ALT/SGPT) 21 12-78 U/L Alkaline Phosphatase 82 45-117 U/L Pro-B-Type Natriuretic Peptide 103 0-900 pg/ml Total Protein 8.0 6.4-8.2 gm/dl Albumin 4.1 3.4-5.0 gm/dl Globulin 3.9 2.5-4.0 gm/dl Albumin/Globulin Ratio 1.0 0.9-2 Bedside Hemoglobin 16.7 14.0-18.0 g/dl Bedside Hematocrit 49 42-52 % Bedside Sodium 139 135-144 mEq/L Bedside Potassium 3.9 3.3-5.0 mEq/L Bedside Chloride 101 101-112 mEq/L Bedside Total CO2 27 24-31 mEq/l Bedside Blood Urea Nitrogen 25 7-18 mg/dl Bedside Creatinine 1.0 0.6-1.3 mg/dl Bedside Glucose (other) 141 70-99 mg/dl Bedside Ionized Calcium (Rupa) 1.16 1.12-1.32 mmol/l Erythrocyte Sedimentation Rate 9 0-14 mm/hr Troponin I < 0.015 < 0.015 0-0.045 ng/ml C-Reactive Protein 3.37 0-0.29 mg/dl Triglycerides Level 34 0-150 mg/dl Cholesterol Level 144 0-200 mg/dl HDL Cholesterol 81 mg/dl LDL Cholesterol, Calculated 56 mg/dl VLDL Cholesterol, Calculated 7 mg/dl Cholesterol/HDL Ratio 1.8 Hepatitis C Antibody Screen NEG NEG Microbiology Results 05/03/17 Blood Culture, Received Pending 05/03/17 Blood Culture, Received Pending
[2017-05-04] MEDS ORDERED: LVQ500 PO (14:09)
[2017-05-04] MEDS ORDERED: CLC6 PO (14:09)
[2017-05-04] MEDS ORDERED: LCTX PO (14:09)
[2017-05-04] MEDS ORDERED: PRD20 PO (14:09)
--- NOTE | 2017-05-04 14:12 | Discharge Instructions ---
Discharge Instructions Date of Service May 04, 2017. Admission Reason for Admission: Chest Pain Discharge Discharge Diagnosis / Problem: Recurrent Pericarditis,Sarcoidosis Discharge Goals Goal(s): Prevent Disease Progression Activity Recommendations Activity Limitations: resume your previous activity . 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 Who to Call and When: Medical Emergencies: If at any time you feel your situation is an emergency, please call 911 immediately. . Non-Emergent Contact Non-Emergency issues call your: Primary Care Provider . Past History Medical & Surgical History: (1) Sarcoidosis (2) History of pericarditis (3) Abnormal chest CT (4) Cholelithiasis (5) Dyslipidemia (6) Chest pain (7) Status post cardiac catheterization (8) Status post implantation of automatic cardioverter/defibrillator (AICD) (9) Status post total knee replacement . "Provider Documentation" section prepared by Jani Gramajo. . VTE Core Measure Inpt VTE Proph given/why not?: SCD's
--- NOTE | 2017-05-04 14:27 | Discharge Summary ---
Discharge Summary Date of Service May 04, 2017. Discharge Summary Admission Date: May 03, 2017 at 19:38 Discharge Date: May 04, 2017 Discharge Disposition: Home Principal Diagnosis: Recurrent Pericarditis,Sarcoidosis Secondary Diagnoses/Problems: Please see H&P and Hospital progress note Consultations: Cardiology Medication Reconciliation New Medications: Lactobacillus Acidophilus (Lactinex) Tab 2 TAB PO BID, #30 TAB Colchicine (Colcrys) 0.6 Mg Tab 0.6 MG PO BID for 30 Days, #60 TAB Levofloxacin (Levofloxacin) 500 Mg Tab 500 MG PO DAILY@11 for 5 Days, #5 TAB Prednisone (Prednisone) 20 Mg Tab 20 MG PO DAILY for 20 Days, #20 TAB 2 tab PO daily for 5 days,1 and a 1/2 tab PO daily for 5 days,1 tab PO daily for 5 days and then 1/2 tab po dailt for 5 days Continued Medications: Atorvastatin (Lipitor) 10 Mg Tab 10 MG PO DAILY, TAB Azelastine Hcl (Astelin Nasal Ripley) 200 Sprays/30 Ml Ripley 1 SPRAYS NA BID, BTL Multivitamins/Minerals (Mvi With Minerals) Tab 2 TAB PO DAILY, TAB Pantoprazole (Protonix) 40 Mg Tab 40 MG PO DAILY, #30 TAB Ranitidine Hcl (Zantac) 150 Mg Tab 150 MG PO HS, TAB Admission Information HPI (per Admitting provider): 71-year-old male from [place], [place] visiting friends in [facility]. History of sarcoidosis, pericarditis, and other problems noted below. He had a cardiac catheterization performed a few years ago that reportedly demonstrated normal coronaries. However, the patient indicates that "his heart stopped" during the catheterization. He does not know the circumstances of the arrhythmia, but a pacemaker/AICD was implanted during that hospital stay. His sarcoidosis has been quiescent has not required steroid therapy for many years. He is followed by a soil conservation aide in [place]. A right upper lobe lesion has been followed by serial CT scans and has gradually increased in size. Bronchoscopy scheduled for 05/06. This morning he noted left scapular pain when he awakened. Pain seems to improve after taking a shower and doing some stretching. Later this morning he developed anterior chest pain described as sharp and worse with inspiration. The pain did not radiate. It was associated with dyspnea. No diaphoresis, nausea, vomiting. No fever or cough. Tried taking approximately without benefit. Came to the ED for evaluation. Received IV morphine with improvement of the chest pain. Past Medical/Surgical History Chronic and Resolved Medical Problems: (1) Abnormal chest CT Status: Chronic (2) Cholelithiasis Status: Chronic (3) Dyslipidemia Status: Chronic (4) GERD (gastroesophageal reflux disease) Status: Chronic (5) History of pericarditis Status: Chronic (6) Sarcoidosis Status: Chronic Surgical Problems: (1) Status post cardiac catheterization Status: Chronic (2) Status post implantation of automatic cardioverter/defibrillator (AICD) Status: Chronic (3) Status post total knee replacement Status: Chronic . Family History FATHER Parkinson's disease Kidney disease MOTHER Thyroid disease Social History Smoking Status: Never Smoker Alcohol Use: socially Marital Status: Allergies Coded Allergies: No Known Allergies (Unverified , 05/03/17) Home Medications Scheduled Atorvastatin (Lipitor), 10 MG PO DAILY Azelastine Hcl (Astelin Nasal Ripley), 1 SPRAYS NA BID Multivitamins/Minerals (Mvi With Minerals), 2 TAB PO DAILY Pantoprazole (Protonix), 40 MG PO DAILY Ranitidine Hcl (Zantac), 150 MG PO HS Review of Systems Constitutional: No fever, No chills Eyes: No worsening of vision, No diplopia ENT: No nasal symptoms, No sore throat Respiratory: + problem reported (as per HPI) Cardiovascular: + problem reported (as per HPI) Abdomen: No pain, No nausea, No vomiting, No diarrhea, No GI bleeding Musculoskeletal: + joint pain, No muscle pain Genitourinary - Male: No hematuria, No dysuria Neurologic: + problem reported (no headaches) Endocrine: No excessive thirst, No excessive urination Hematologic / Lymphatic: No abnormal bleeding/bruising, No swollen lymph nodes Integumentary: No rash, No new/changing skin lesions Physical Exam Vital Signs Date Time Temp Pulse Resp B/P (MAP) Pulse Ox O2 Delivery O2 Flow Rate FiO2 05/03/17 18:55 93 20 154/94 99 Room Air 05/03/17 17:31 88 05/03/17 17:14 98 Nasal Cannula 2.0 05/03/17 17:14 97 Nasal Cannula 05/03/17 17:13 97 Room Air 05/03/17 16:57 36.7 93 28 148/98 97 Room Air General Appearance: WD/WN, no apparent distress Head: normocephalic, atraumatic Eyes: normal inspection, PERRL, EOMI, sclerae normal, + pertinent finding ( conjunctivae pink) ENT: normal ENT inspection, hearing grossly normal, pharynx normal Neck: supple, thyroid normal, no JVD, trachea midline Respiratory/Chest: no respiratory distress, no accessory muscle use, + pertinent finding (bibasilar rales, more prominent on right) Cardiovascular: regular rate, rhythm, no edema, no gallop, no JVD, no murmur, normal peripheral pulses Abdomen/GI: normal bowel sounds, non tender, soft, no organomegaly, no pulsatile mass Extremities/Musculoskelatal: normal inspection, no calf tenderness, normal capillary refill, no pedal edema Neurologic/Psych: director of digital marketing II-XII nml as tested (pupils equal round reactive, extraocular movements intact, no dysarthria, no facial palsy), no motor/sensory deficits (motor strength upper and lower extremities intact), alert, normal mood /affect, normal reflexes, oriented x 3 Skin: normal color, warm/dry, no rash Lymphatic: no adenopathy (cervical/axillary) Diagnostics Laboratory Results Results Past 24 Hours Test 05/03/17 17:05 05/03/17 17:20 Range/Units White Blood Count 8.96 4.8-10.8 K/uL Red Blood Count 5.39 4.7-6.1 M/uL Hemoglobin 16.1 14.0-18.0 g/dL Hematocrit 48.8 42-52 % Mean Corpuscular Volume 90.5 80-100 fL Mean Corpuscular Hemoglobin 29.9 25-34 pg Mean Corpuscular Hemoglobin Concent 33.0 32-36 g/dl Platelet Count 184 130-400 K/uL Mean Platelet Volume 9.5 7.4-10.4 fL Neutrophils (%) (Auto) 84.9 % Lymphocytes (%) (Auto) 4.1 % Monocytes (%) (Auto) 10.4 % Eosinophils (%) (Auto) 0.4 % Basophils (%) (Auto) 0.1 % Neutrophils # (Auto) 7.60 1.4-6.5 K/uL Lymphocytes # (Auto) 0.37 1.2-3.4 K/uL Monocytes # (Auto) 0.93 0.11-0.59 K/uL Eosinophils # (Auto) 0.04 0-0.5 K/uL Basophils # (Auto) 0.01 0-0.2 K/uL RDW Standard Deviation 44.8 36.4-46.3 fL RDW Coefficient of Variation 13.7 11.5-14.5 % Immature Granulocyte % (Auto) 0.1 % Immature Granulocyte # (Auto) 0.01 0.00-0.02 K/uL Prothrombin Time 10.6 9.0-12.0 SECONDS Prothromb Time International Ratio 1.0 0.9-1.1 D-Dimer 780 0-500 ug/L FEU Sodium Level 139 136-145 mmol/L Potassium Level 3.9 3.5-5.1 mmol/L Chloride Level 104 98-107 mmol/L Carbon Dioxide Level 26 21-32 mmol/L Anion Gap 9.0 16.0 16-25 mmol/L Blood Urea Nitrogen 23 7-18 mg/dl Creatinine 1.10 0.60-1.40 mg/dl Est Creatinine Clear Calc Drug Dose 69.6 ml/min Estimated GFR () 79.0 Estimated GFR (Non- 68.1 BUN/Creatinine Ratio 20.7 10-20 Random Glucose 143 70-99 mg/dl Calcium Level 9.0 8.5-10.1 mg/dl Total Bilirubin 0.7 0.2-1 mg/dl Aspartate Amino Transf (AST/SGOT) 16 15-37 U/L Alanine Aminotransferase (ALT/SGPT) 21 12-78 U/L Alkaline Phosphatase 82 45-117 U/L Pro-B-Type Natriuretic Peptide 103 0-900 pg/ml Total Protein 8.0 6.4-8.2 gm/dl Albumin 4.1 3.4-5.0 gm/dl Globulin 3.9 2.5-4.0 gm/dl Albumin/Globulin Ratio 1.0 0.9-2 Bedside Hemoglobin 16.7 14.0-18.0 g/dl Bedside Hematocrit 49 42-52 % Bedside Sodium 139 135-144 mEq/L Bedside Potassium 3.9 3.3-5.0 mEq/L Bedside Chloride 101 101-112 mEq/L Bedside Total CO2 27 24-31 mEq/l Bedside Blood Urea Nitrogen 25 7-18 mg/dl Bedside Creatinine 1.0 0.6-1.3 mg/dl Bedside Glucose (other) 141 70-99 mg/dl Bedside Ionized Calcium (Rupa) 1.16 1.12-1.32 mmol/l Microbiology Results 05/03/17 Blood Culture, Ordered Pending 05/03/17 Blood Culture, Ordered Pending Diagnostic Radiology CHEST ONE VIEW PORTABLE FINDINGS: Low lung volumes. The heart is mildly enlarged. Left-sided pacemaker/defibrillator. No pneumothorax. No pleural effusions. Patchy airspace opacity within the right lung base. Mild central pulmonary vascular congestion without overt edema. IMPRESSION: 1. Right basilar airspace opacity. This may represent atelectasis or pneumonia. 2. Mild central pulmonary vascular congestion without overt edema. Electronically signed by: Froylan Dolan M.D. 05/03/2017 6:40 PM Dictated Date/Time: 05/03/2017 6:39 PM CHEST CTA for PULMONARY ARTERIES FINDINGS: No significant pleural effusions. Small pericardial effusion. Left-sided pacemaker. Normal caliber thoracic aorta with no evidence for dissection. No definite filling defects within the pulmonary arteries to suggest pulmonary embolus. No suspicious lytic or blastic osseous lesions. The visualized liver and spleen are unremarkable. Multiple calcified mediastinal and hilar lymph nodes. The bilateral hilar lymph nodes are mildly enlarged. Some of the bilateral hilar lymphadenopathy/soft tissue results in narrowing of the central pulmonary arteries. No pneumothorax. Small focal density within the left lung apex. Focal left suprahilar area of consolidation/soft tissue demonstrate a bronchovascular distribution. This measures 1.8 cm. A few additional scattered nodular and groundglass airspace opacity seen within the lungs. A 4 mm subpleural nodule within the right lower lobe on image 52. A 9 mm focal area of consolidation within the superior segment of the left lower lobe in image 116. Patchy airspace consolidation seen within the right middle lobe and base of the right lower lobe. Peripheral cavitary lesion within the right upper lobe measuring 1.4 cm. The bilateral hilar soft tissue/lymphadenopathy also results in narrowing of the central bronchi. Mild bibasilar interstitial thickening. Patchy groundglass airspace opacities within the base of the lingula and left lower lobe. IMPRESSION: 1. No evidence for pulmonary embolus. 2. Multifocal airspace opacities as described above most pronounced at the right lung base. This favors a pneumonia. There is also a 1.4 cm cavitary lesion within the right upper lobe. This may also represent an infectious process. However, recommend follow up to resolution to exclude the possibility of a malignancy. 3. Calcified mediastinal and hilar lymph nodes. The bilateral hilar lymph nodes/soft tissue encases the central pulmonary arteries and bronchi resulting mild narrowing. There is also a 1.8 cm soft tissue focus within the left suprahilar location surrounding the bronchovascular bundle. This could be due to sarcoidosis or possibly a neoplastic process. Pulmonary consultation is recommended for further evaluation. 4. Small pericardial effusion. Electronically signed by: Froylan Dolan M.D. 05/03/2017 7:08 PM Dictated Date/Time: 05/03/2017 6:56 PM . EKG EKG performed at 17:04 reviewed and demonstrated normal sinus rhythm at 90/ minute, right bundle branch block, repolarization abnormalities. . Impression Assessment and Plan CHEST PAIN Patient presented to ED with anterior pleuritic chest pain. History of pericarditis, possibly secondary to sarcoidosis. Pulmonary embolism ruled out by CTA chest. Parenchymal radiographic abnormalities noted on imaging may be due to acute process as discussed below, but suspect that they represent chronic findings. Symptoms not suggestive of myocardial ischemia / infarction. Patient indicates that cardiac cath a few years ago showed normal coronaries. CT chest suggests small pericardial effusion. Suspect recurrent pericarditis. Check ESR and c-reactive protein. Check serial cardiac markers. Check echo. Start steroids- methylprednisolone IV x 1, then prednisone 40 mg daily. Consult Cardiology. PULMONARY INFILTRATES / SARCOIDOSIS Chest x-ray demonstrated right basilar infiltrate. CT chest demonstrated bilateral densities most prominent at right base, 1.4 cm cavitary lesion RUL, calcified mediastinal and hilar lymph nodes. Patient known to have sarcoidosis and has been followed by Pulmonary Medicine with serial CT scans. [facility] [place] [place] obtained. Bilateral scarring / interstitial thickening as well as a slowly enlarging RUL cavitary nodule measuring 15 mm described. Arrangements made for bronchoscopy 05/06/17. We don't have images available for direct comparison. Suspect that radiographic findings are chronic. Nevertheless, pneumonia is possible. Blood cultures were obtained in ED and patient received IV ceftriaxone and azithromycin. Check procalcitonin. Will change antibiotic coverage to levofloxacin. QTc = 460 msec (with RBBB). Follow. Patient will need copies of his imaging studies at time of discharge for review by his soil conservation aide in [place]. S/P DEFIBRILLATOR / ICD Unclear exact indication- ? heart block or ventricular arrhythmia. No discharges of ICD. ELEVATED D-DIMER CTA chest negative for pulmonary embolism. Check venous duplex lower extremities. GERD Continue PPI. VTE PROPHYLAXIS No anticoagulants because of suspected pericarditis. SCD's. Ambulate. RESUSCITATION STATUS Discussed with patient. He has a living will. He would like resuscitation attempted in the event of a cardiopulmonary arrest if there is a reasonable chance of a meaningful recovery, but does not want prolonged extraordinary measures if prognosis is poor. Therefore, code status = "Level 1" (full resuscitation). DISPOSITION Admit to Telemetry Unit. Expected discharge to home. Medical and pulmonary follow-up with providers in [place], [place]. . VTE Prophylaxis VTE Risk Assessment Done? Y/N: Yes Risk Level: Moderate Given or contraindicated: SCD's <Electronically signed by Shilo Cantor M.D.> Signed: 05/04/17 0915 . Physical Exam (per Admitting): General Appearance: WD/WN, no apparent distress Head: normocephalic, atraumatic Eyes: normal inspection, PERRL, EOMI, sclerae normal, + pertinent finding ( conjunctivae pink) ENT: normal ENT inspection, hearing grossly normal, pharynx normal Neck: supple, thyroid normal, no JVD, trachea midline Respiratory/Chest: no respiratory distress, no accessory muscle use, + pertinent finding (bibasilar rales, more prominent on right) Cardiovascular: regular rate, rhythm, no edema, no gallop, no JVD, no murmur , normal peripheral pulses Abdomen/GI: normal bowel sounds, non tender, soft, no organomegaly, no pulsatile mass Extremities/Musculoskelatal: normal inspection, no calf tenderness, normal capillary refill, no pedal edema Neurologic/Psych: director of digital marketing II-XII nml as tested (pupils equal round reactive, extraocular movements intact, no dysarthria, no facial palsy), no motor/sensory deficits (motor strength upper and lower extremities intact), alert, normal mood /affect, normal reflexes, oriented x 3 Skin: normal color, warm/dry, no rash Lymphatic: no adenopathy (cervical/axillary) Hospital Course POSSIBLE PERICARDITIS Presented with CHEST PAIN History of pericarditis, possibly secondary to sarcoidosis. Pulmonary embolism ruled out by CTA chest. Patient indicates that cardiac cath a few years ago showed normal coronaries. CT chest suggests small pericardial effusion. C reactive Protein elevated at 3.37 ESR -normal Check serial cardiac markers-negative for any ACS. Check echo:: Trivial circumferential pericardial effusion. * There are no echocardiographic indications of cardiac tamponade. * Ejection Fraction = 65-70%. * Aortic valve sclerosis mild, without significant aortic valvular stenosis. Received Methylprednisolone IV x 1, then prednisone 40 mg daily. Appreciate Cardiology input -Colchicine added ,slow taper of Steroid Sarcoidosis with pulmonary Infiltrate Chest x-ray demonstrated right basilar infiltrate. CT chest demonstrated bilateral densities most prominent at right base, 1.4 cm cavitary lesion RUL, calcified mediastinal and hilar lymph nodes. Patient known to have sarcoidosis and has been followed by Pulmonary Medicine with serial CT scans. Copy [facility] CT report [facility] [place] [place] obtained. Bilateral scarring / interstitial thickening as well as a slowly enlarging RUL cavitary nodule measuring 15 mm described. Arrangements made for bronchoscopy 05/06/17. Suspect that radiographic findings are chronic. Nevertheless, pneumonia is possible. Blood cultures were obtained in ED and patient received IV ceftriaxone and azithromycin.. Will change antibiotic coverage to levofloxacin. QTc = 460 msec (with RBBB). Follow. Patient will need copies of his imaging studies at time of discharge for review by his soil conservation aide in [place]. S/P DEFIBRILLATOR / ICD Proven Cardiac Sarcoidosis and ICD was placed about 2.5 -3 years ago No discharges of ICD. ELEVATED D-DIMER CTA chest negative for pulmonary embolism. Check venous duplex lower extremities-no DVT. GERD Continue PPI. VTE PROPHYLAXIS No anticoagulants because of suspected pericarditis. SCD's. Ambulate. RESUSCITATION STATUS Full Code DISPOSITION Expected discharge to home. Medical and pulmonary follow-up with providers in [place], [place]. Likely discharge today . Total time spent on discharge = 35 minutes This includes examination of the patient, discharge planning, medication reconciliation, and communication with other providers. Discharge Instructions Date of Service May 04, 2017. Admission Reason for Admission: Chest Pain Discharge Discharge Diagnosis / Problem: Recurrent Pericarditis,Sarcoidosis Discharge Goals Goal(s): Prevent Disease Progression Activity Recommendations Activity Limitations: resume your previous activity . Instructions / Follow-Up Instructions / Follow-Up Please have a follow up appointment with your PC in 1 week.Keep regular follow up with your Real Estate Manager and Rubbish Collection Supervisor Current Hospital Diet Patient's current hospital diet: AHA Diet (Heart Healthy) Discharge Diet Recommended Diet: AHA Diet (Heart Healthy) Pending Studies Studies pending at discharge: no Laboratory Results Lipid Panel Test 05/04/17 05:23 Range/Units Triglycerides Level 34 0-150 mg/dl Cholesterol Level 144 0-200 mg/dl HDL Cholesterol 81 mg/dl Cholesterol/HDL Ratio 1.8 LDL Cholesterol, Calculated 56 mg/dl Medical Emergencies . Who to Call and When: Medical Emergencies: If at any time you feel your situation is an emergency, please call 911 immediately. . Non-Emergent Contact Non-Emergency issues call your: Primary Care Provider . Past History Medical & Surgical History: (1) Sarcoidosis (2) History of pericarditis (3) Abnormal chest CT (4) Cholelithiasis (5) Dyslipidemia (6) Chest pain (7) Status post cardiac catheterization (8) Status post implantation of automatic cardioverter/defibrillator (AICD) (9) Status post total knee replacement . "Provider Documentation" section prepared by Jani Gramajo. . VTE Core Measure Inpt VTE Proph given/why not?: SCD's
[2017-05-04 14:40] VITALS: BP 137/72; PULSE 85; TEMP 36.5; O2SAT 91
[2017-05-04] MEDS ORDERED: RANITIDINE HCL 150 MG TAB PO SCH (21:00)
[2017-05-04] MEDS ORDERED: COLCHICINE 0.6 MG TAB PO SCH (21:00)
== END 2017-05-04 15:36 | disposition home or self-care (01) ==
LOC: C.EDB 16:58 → C.2E 19:38 → ENRESERV 20:02
PROVIDERS: ADMIT Hospitalist; ATTEND Internal Medicine
DX: R07.9 Chest pain, unspecified (principal); R03.0 Elevated blood-pressure reading, without diagnosis of hypertension; I45.10 Unspecified right bundle-branch block; E78.5 Hyperlipidemia, unspecified; K21.9 Gastro-esophageal reflux disease without esophagitis; Z95.810 Presence of automatic (implantable) cardiac defibrillator; Z96.659 Presence of unspecified artificial knee joint; Z84.1 Family history of disorders of kidney and ureter; Z79.899 Other long term (current) drug therapy